=== PATIENT | male | born 1995 | race Caucasian/White ===

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

== ENCOUNTER 2017-03-22 21:02 | Emergency (ER) | payer OTHER | END 2017-03-22 22:10 | disposition home or self-care (01) | LOC: ER 21:02 | DX: H10.89 Other conjunctivitis (principal) ==